=== PATIENT | male | born 1990 | race Caucasian/White ===

== ENCOUNTER 2019-05-23 18:12 | Emergency (ER) | payer SELFPAY | END 2019-05-23 19:02 | disposition home or self-care (01) | LOC: ERS 18:12 | DX: J06.9 Acute upper respiratory infection, unspecified (principal); F17.210 Nicotine dependence, cigarettes, uncomplicated; Z71.6 Tobacco abuse counseling | CPT/HCPCS: 99406 ==

== ENCOUNTER 2020-02-17 18:04 | Emergency (ER) | payer SELFPAY ==
[2020-02-17] MEDS ORDERED: Ondansetron PF 4 MG/2 ML Vial ONE ×2 (18:22→18:24)
[2020-02-17 18:56] LABS: #Basophils 0.1 thou/uL (0.0-0.2); #Lymphocytes 3.1 thou/uL (1.20-3.40); #Monocytes 0.7 thou/uL (0.11-0.59); #Neutrophils 5.1 thou/uL (1.40-6.50); %Basophils 1.2 % (0.0-1.0); %Eosinophils 0.2 % (0.0-10.0); %Lymphocytes 34.5 % (21.0-51.0); %Monocytes 7.8 % (0.0-10.0); %Neutrophils 56.3 % (42.0-75.0); Hemoglobin 16.8 g/dL (14.0-18.0); Mean Corpuscular HGB CONC 34.7 g/dL (32.0-36.0); Mean Corpuscular Hemoglobin 32.5 pg (27.0-31.0); Mean Corpuscular Volume 93.6 fL (78.0-98.0); Mean Platelet Volume 8.4 fL (7.4-10.4); Platelet Count 258 thou/uL (130-400); RBC Distribution Width 12.2 % (11.5-14.5); Red Blood Cell (RBC) Count 5.17 mill/uL (4.70-6.10); White Blood Cell (WBC) Count 9.1 thou/uL (4.8-10.8)
[2020-02-17 19:16] LABS: ALT (SGPT) 12 U/L (8-55); AST (SGOT) 16 U/L (5-34); Albumin 4.4 g/dL (3.5-5.0); Alkaline Phosphatase 68 U/L (40-110); Anion Gap 12 mmol/L (10-20); BUN (Urea Nitrogen) 9 mg/dL (8.9-20.6); Bilirubin, Total 1.1 mg/dL (0.2-1.2); Calc. Creatinine Clearance 0 mL/min (70-130); Calcium 9.1 mg/dL (7.8-10.44); Carbon Dioxide 25 mmol/L (22-29); Chloride 105 mmol/L (98-107); Estimated GFR-MDRD Greater than 90; Globulin 2.1 g/dL (2.4-3.5); Glucose 93 mg/dL (70-105); Lipase 81 U/L (8-78); Protein, Total 6.5 g/dL (6.0-8.3); Sodium 138 mmol/L (136-145)
== END 2020-02-17 19:54 | disposition home or self-care (01) ==
LOC: ERS 18:04
DX: R11.15 Cyclical vomiting syndrome unrelated to migraine (principal); F12.20 Cannabis dependence, uncomplicated; F41.9 Anxiety disorder, unspecified; F17.210 Nicotine dependence, cigarettes, uncomplicated
CPT/HCPCS: 80053; 83690; 85025; 96374; J2405